=== PATIENT | male | born 1950 | race Caucasian/White ===

== ENCOUNTER → 2019-10-01 | Outpatient (CLI) | payer OTHER | LOC: CAT 15:19 | PROVIDERS: ATTEND Internal Medicine | DX: Z12.2 Encounter for screening for malignant neoplasm of respiratory organs (principal); R91.8 Other nonspecific abnormal finding of lung field; J92.9 Pleural plaque without asbestos; J43.0 Unilateral pulmonary emphysema [MacLeod's syndrome]; J98.4 Other disorders of lung; J43.9 Emphysema, unspecified; Z87.891 Personal history of nicotine dependence ==